=== PATIENT | male | born 1980 | race Caucasian/White ===

== ENCOUNTER 2023-11-10 00:01 | Emergency (ER) | payer BC ==
[2023-11-10 00:21] VITALS: O2SAT 99
[2023-11-10] MEDS ORDERED: LIDOCAINE 1%-EPI 1:100000 20 ML MDV ONE (02:33)
[2023-11-10] MEDS: LIDOCAINE 1%-EPI 1:100000 10 ML MDV SUBQ STA (02:34)
--- NOTE | 2023-11-10 04:12 | ED Physician Documentation ---
History of Present Illness - Stated complaint Stated Complaint: L LEG LAC - Chief complaint Chief Complaint: Laceration - Additonal information Additional information: 43-year-old male with essential hypertension, lower extremity venous insu fficiency presents with bleeding varicose vein. Reports has had intermittent episodes of bleeding from 1 specific varicose vein on the medial aspect of his left ankle. Recently disrupted the clot and was unable to get the bleeding controlled at home so wrapped his leg and electrical tape and came to the emergency department. Denies taking blood thinners. Review of Systems Constitutional: denies: Fever Eyes: denies: Loss of vision Ears: denies: Loss of hearing Nose: denies: Rhinorrhea / runny nose Throat: denies: Dental pain / toothache Cardiac: denies: Chest pain / pressure Respiratory: denies: Dyspnea GI: denies: Abdominal Pain : denies: Dysuria Skin: denies: Rash Musculoskeletal: denies: Neck pain Neurologic: denies: Generalized weakness PD PAST MEDICAL HISTORY - Past Medical History Past Medical History: No Cardiovascular: None Respiratory: None Neuro: None Endocrine/Autoimmune: None GI: None : None HEENT: None Psych: None Musculoskeletal: None Derm: None - Past Surgical History Past Surgical History: No - Allergies Allergies/Adverse Reactions: Allergies Allergy/AdvReac Type Severity Reaction Status Date / Time No Known Drug Allergies Allergy Verified 11/10/23 00:15 - Social History Does the pt smoke?: No Smoking Status: Never smoker Does the pt drink ETOH?: No Does the pt have substance abuse?: No - Immunizations Immunizations are current?: Yes - POLST Patient has POLST: No PD ED PE NORMAL - General General: Alert and oriented X 3 - HEENT HEENT: Atraumatic - Neck Neck: Supple, no meningeal sign - Cardiac Cardiac: RRR - Respiratory Respiratory: No respiratory distress - Abdomen Abdomen: Normal bowel sounds - Male Male : Deferred - Rectal Rectal: Deferred - Back Back: No CVA TTP - Derm Derm: Normal color - Extremities Extremities: No deformity, Other (Scant area of bleeding varicosity in the left medial ankle. 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 Hypertensive on arrival to the emergency department but otherwise hemodynamically stable. Notable active bleeding to one of the varicosities in the left lower extremity.Area was cleaned, infiltrated with 20 cc 1% lidocaine with epinephrine. Direct pressure was held and patient underwent electrocautery to the area with the achievement of hemostasis. Pressure dressing was applied directly to the area and he was instructed to keep the pressure dressing applied for the next 48 hours. He was encouraged to follow-up with his primary care doctor and to continue to work towards follow-up with a vascular specialist for his venous insufficiency. Departure - Departure Disposition: 01 Home, Self Care Clinical Impression: Bleeding from varicose vein, Venous insufficiency Comments: Please keep the dressing applied here in the emergency department in place for the next 48 hours. After which time I recommend daily dressing changes. Please follow-up with your primary care doctor as well as with your vascular specialist at your earliest opportunity. If it anytime you have new or worsening symptoms or develop bleeding through your dressing please return.
[2023-11-10 04:39] VITALS: BP 166/96
== END 2023-11-10 04:33 | disposition home or self-care (01) ==
LOC: ED 00:01
DX: I83.892 Varicose veins of left lower extremity with other complications (principal); I87.2 Venous insufficiency (chronic) (peripheral); R03.0 Elevated blood-pressure reading, without diagnosis of hypertension
CPT/HCPCS: 96372; 99283